=== PATIENT | male | born 1975 | race African-American/Black ===

== ENCOUNTER 2017-07-06 19:57 | Emergency (ER) | payer BC ==
[~2017-07-06] VITALS: Ht 175.3 cm; Wt 90.5 kg
[2017-07-06 20:45] LABS: HEMATOCRIT 39.3 % (38.0-50.0); HEMOGLOBIN 13.6 G/DL (12.5-16.6); MCH 31.2 PG (29.0-34.0); MCHC 34.6 G/DL (30.0-36.0); MCV 90.1 FL (86-99); PLATELET COUNT 256 K/uL (156-360); RBC DIS.WIDTH-CV 11.6 % (11.8-14.6); RBC DIS.WIDTH-SD 38.2 % (39-53); RED BLOOD COUNT 4.36 M/uL (4.00-5.50); WHITE BLOOD COUNT 3.9 K/uL (4.1-10.2)
[2017-07-06 20:53] LABS: ALBUMIN 4.4 g/dL (3.2-4.8)
[2017-07-06 20:54] LABS: CHLORIDE 102 mEq/L (99-109); SODIUM 138 mEq/L (136-147)
[2017-07-06 20:56] LABS: GLUCOSE 95 mg/dL (70-99); TOTAL PROTEIN 7.2 g/dL (6.4-8.3)
[2017-07-06 20:58] LABS: TOTAL BILIRUBIN 0.3 mg/dL (0.0-1.0)
[2017-07-06 20:59] LABS: ALKALINE PHOSPHATASE 45 IU/L (3-129)
[2017-07-06 20:59] LABS: APPEARANCE CLEAR ((CLEAR)); BILIRUBIN NEGATIVE; BLOOD NEGATIVE; COLOR YELLOW ((YELLOW)); GLUCOSE (STRIP) NEGATIVE; KETONES NEGATIVE; LEUKOCYTES NEGATIVE; NITRITE NEGATIVE; PROTEIN (STRIP) 30; SPECIFIC GRAVITY 1.026 (1.000-1.030); UCUL ADDED? NO
[2017-07-06 21:00] LABS: CREATININE 1.3 mg/dL (0.6-1.3); GFR ESTIMATE (CALCULATED) > 59 mL/min/ (58.99-99999)
[2017-07-06 21:01] LABS: AST (GOT) 18 IU/L (2-34); UREA NITROGEN (BUN) 17 mg/dL (9-23)
[2017-07-06 21:03] LABS: ALT (GPT) 16 IU/L (3-49)
[2017-07-06 23:05] VITALS: BP 122/70
== END 2017-07-06 23:06 | disposition home or self-care (01) ==
LOC: EME 19:57
DX: R10.31 Right lower quadrant pain (principal); R11.0 Nausea; K57.30 Diverticulosis of large intestine without perforation or abscess without bleeding
CPT/HCPCS: 74177; 80053; 81003; 85027; 99281; 99284